=== PATIENT | female | born 1965 | race African-American/Black ===

== ENCOUNTER → 2020-05-23 | Outpatient (CLI) | payer MEDICAID | LOC: RAD 13:00 | DX: C77.1 Secondary and unspecified malignant neoplasm of intrathoracic lymph nodes (principal); C34.92 Malignant neoplasm of unspecified part of left bronchus or lung; C79.89 Secondary malignant neoplasm of other specified sites; C76.2 Malignant neoplasm of abdomen; K86.89 Other specified diseases of pancreas; R91.8 Other nonspecific abnormal finding of lung field; I31.3 Pericardial effusion (noninflammatory); J91.0 Malignant pleural effusion ==